=== PATIENT | female | born 1965 | race Caucasian/White ===

== ENCOUNTER 2022-07-21 04:15 | Emergency (ER) | payer BC ==
[~2022-07-21] VITALS: Ht 152.4 cm; Wt 68.0 kg
[2022-07-21] MEDS ORDERED: METOCLOPRAMIDE HCL 10 MG/2 ML VIAL ONE (04:27)
[2022-07-21] MEDS ORDERED: HYDROMORPHONE 1 MG/1 ML DISP.SYRIN ONE ×2 (04:27→07:01)
[2022-07-21] MEDS ORDERED: diphenhydrAMINE 50 MG/1 ML VIAL ONE (04:28)
[2022-07-21] MEDS ORDERED: HYDROMORPHONE 1 MG/1 ML DISP.SYRIN IV ONE ×2 (04:30→07:00)
[2022-07-21] MEDS ORDERED: METOCLOPRAMIDE HCL 10 MG/2 ML VIAL IV ONE (04:30)
[2022-07-21] MEDS ORDERED: diphenhydrAMINE 50 MG/1 ML VIAL IV ONE (04:30)
[2022-07-21] MEDS ORDERED: IV NORMAL SALINE 1000 ML BAG IV ONE ×2 (04:30→08:00)
[2022-07-21 04:38] LABS: HEMATOCRIT 46.3 % (31.2-41.9); MEAN CORPUSCULAR HEMOGLOBIN 31.6 uug (24.7-32.8); MEAN CORPUSCULAR VOLUME 92.4 fL (75.5-95.3); PLATELET COUNT (AUTO) 280 K/uL (179-408)
[2022-07-21 04:48] LABS: CREATININE 0.7 mg/dL (0.6-1.3); POTASSIUM 3.5 mmol/L (3.5-5.1)
[2022-07-21 04:53] LABS: BILIRUBIN,DIRECT 0.2 mg/dL (0.0-0.2); TOTAL PROTEIN, SERUM 7.5 g/dL (6.4-8.2)
[2022-07-21] MEDS ORDERED: SWABABLE VALVE TRANSFER SET EA MC ONE (04:58)
[2022-07-21] MEDS ORDERED: IV NORMAL SALINE 250 ML IV ONE (04:58)
[2022-07-21] MEDS ORDERED: IOHEXOL 300MG/ML 100 ML INFUS..BTL ONE (04:58)
[2022-07-21 07:23] LABS: *CLARITY,URINE CLEAR (CLEAR); *COLOR,URINE YELLOW (YELLOW); *KETONES,URINE TRACE (NEGATIVE); LEUKOCYTE ESTERASE ,URINE NEGATIVE (NEGATIVE); NITRITE, URINE NEGATIVE (NEGATIVE); UGLUCOSE NEGATIVE (NEGATIVE)
[2022-07-21 07:39] LABS: *BLOOD, URINE TRACE (NEGATIVE)
[2022-07-21 07:40] LABS: *BILIRUBIN,URIN 1+ (NEGATIVE)
[2022-07-21] MEDS ORDERED: ACETAMINOPHEN 325 MG TABLET PO ONE (07:45)
[2022-07-21] MEDS ORDERED: IBUPROFEN 400 MG TABLET PO ONE (07:45)
[2022-07-21] MEDS ORDERED: IBUPROFEN 400 MG TABLET ONE (07:54)
[2022-07-21] MEDS ORDERED: ACETAMINOPHEN 325 MG TABLET ONE (07:54)
[2022-07-21] MEDS ORDERED: ONDA4TAB5 PO (08:54)
[2022-07-21 09:12] VITALS: BP 120/66
[2022-07-21 09:16] LABS: BACTERIA,URINE NONE SEEN /HPF (NONE SEEN); RBC,URINE 0-3 /HPF (0-3); SQUAMOUS EPITHELIAL CELL,UR FEW /HPF (NONE SEEN); WBC,URINE NONE SEEN /HPF (0-3)
== END 2022-07-21 09:13 | disposition home or self-care (01) ==
LOC: ER 04:21
DX: R10.30 Lower abdominal pain, unspecified (principal); R19.7 Diarrhea, unspecified; R11.2 Nausea with vomiting, unspecified; Z87.01 Personal history of pneumonia (recurrent); E03.9 Hypothyroidism, unspecified
CPT/HCPCS: 99285; 74177; 96374; 96361 ×2; 96375; 80076; 80048; 81001; 83690; 85025; 36415; 96376; J1200; J2765; Q9967; J1170 ×2; J7040 ×2; A4663